=== PATIENT | female | born 1990 | race Caucasian/White ===

== ENCOUNTER 2019-12-23 13:27 | Emergency (ER) | payer OTHER ==
[~2019-12-23 13:27] MED LIST: Iopamidol 370 76% 50 ML VIAL FS ONE; Iopamidol-370 76% 500 ML 1 ML ONE
[2019-12-23 14:04] LABS: Bacteria/HPF 4+ HPF (None Seen); Bilirubin Negative (Negative); Blood, Urine Negative (Negative); Clarity Turbid (Clear); Glucose, Urine (Dipstick) Normal (Negative); Ketone, Urine Negative (Negative); Leukocyte 25 Leu/uL (Negative); Nitrite Negative (Negative); Protein, Urine (Dipstick) 10 mg/dL (Neg-Trace); RBC/HPF 0-3 HPF (0-3); Specific Gravity, Urine 1.023 (1.002-1.036); Urobilinogen Normal mg/dL (Less than 2)
[2019-12-23] MEDS ORDERED: Morphine 4 MG/ML VIAL ONE (14:05)
[2019-12-23] MEDS ORDERED: diphenhydrAMINE 50 MG/ML VIAL ONE (14:05)
[2019-12-23] MEDS ORDERED: Ondansetron PF 4 MG/2 ML Vial ONE (14:05)
[2019-12-23] MEDS ORDERED: methylPREDNISolone Sod Succ/PF 125 MG/2 ML VIAL ONE ×2 (14:05→14:08)
[2019-12-23] MEDS ORDERED: Famotidine/PF 20 mg/2ml Vial ONE (14:05)
[2019-12-23 14:08] LABS: #Lymphocytes 2.3 thou/uL (1.20-3.40); #Monocytes 0.7 thou/uL (0.11-0.59); %Basophils 0.3 % (0.0-1.0); %Eosinophils 0.4 % (0.0-10.0); %Monocytes 8.1 % (0.0-10.0); %Neutrophils 62.2 % (42.0-75.0); Hemoglobin 14.5 g/dL (12.0-16.0); Mean Corpuscular HGB CONC 34.1 g/dL (32.0-36.0); Mean Corpuscular Volume 90.7 fL (78.0-98.0); Platelet Count 294 thou/uL (130-400); RBC Distribution Width 11.7 % (11.5-14.5); Red Blood Cell (RBC) Count 4.68 mill/uL (4.20-5.40)
[2019-12-23 14:20] LABS: Pregnancy Test - Urine (BHCG) Negative (Negative); Pregu Control Bar Appear? YES (CONTROL BAR); Specific Gravity 1.023 (1.002-1.036)
[2019-12-23 14:21] LABS: Pregu Control Background? CLEAR/WHITE (CLR/WHITE)
[2019-12-23 14:32] LABS: ALT (SGPT) 14 U/L (8-55); AST (SGOT) 13 U/L (5-34); Albumin 4.4 g/dL (3.5-5.0); Alkaline Phosphatase 64 U/L (40-110); Anion Gap 15 mmol/L (10-20); BUN (Urea Nitrogen) 11 mg/dL (7.0-18.7); Bilirubin, Total 0.5 mg/dL (0.2-1.2); Calc. Creatinine Clearance 0 mL/min (70-130); Carbon Dioxide 23 mmol/L (22-29); Chloride 104 mmol/L (98-107); Estimated GFR-MDRD 84; Globulin 2.5 g/dL (2.4-3.5); Glucose 82 mg/dL (70-105); Lipase 28 U/L (8-78); Potassium 4.2 mmol/L (3.5-5.1); Protein, Total 6.9 g/dL (6.0-8.3); Sodium 138 mmol/L (136-145)
--- NOTE | 2019-12-23 17:07 | CT ---
CT ABDOMEN AND PELVIS WITH IV CONTRAST: Date: 12-23-2019 PROVIDED CLINICAL HISTORY: Right lower quadrant pain. FINDINGS: The visualized lung bases are free of significant opacity. The liver, spleen, pancreas, and adrenal glands appear unremarkable. There is a 2 mm nonobstructing m idpole left renal calculus. There is a subcentimeter hyperdensity involving the inferior right kidney , too small to definitively characterize, but statistically a cyst. There is no bowel dilatation, inflammatory fat stranding, free fluid, or free air apparent. The gallb ladder is decompressed. The appendix appears normal. There are conspicuous by number but no biologically enlarged lymph nodes present within the central a nd right lower quadrant bowel mesentery. No retroperitoneum lymph node enlargement is evident. The osseous structures demonstrate no concerning lytic or blastic lesions. IMPRESSION: Findings suggesting mesenteric adenitis. POS: [facility]
== END 2019-12-23 17:27 | disposition home or self-care (01) ==
LOC: ERS 13:27
DX: I88.0 Nonspecific mesenteric lymphadenitis (principal); G43.909 Migraine, unspecified, not intractable, without status migrainosus; Z79.899 Other long term (current) drug therapy
CPT/HCPCS: 36415; 74177; 80053; 81003; 81015; 81025; 83690; 85025; 96374; 96375; J1200; J2270; J2405; J2930; Q9967; S0028

== ENCOUNTER 2020-09-06 19:40 | Emergency (ER) | payer OTHER ==
[2020-09-06] MEDS ORDERED: cefTRIAXone\\ROCEPHIN 1 GM VIAL ONE (20:27)
[2020-09-06] MEDS ORDERED: Dexamethasone 10 MG/ML VIAL ONE (20:27)
[2020-09-06] MEDS ORDERED: diphenhydrAMINE 50 MG/ML VIAL ONE (20:27)
== END 2020-09-06 23:08 | disposition home or self-care (01) ==
LOC: ERS 19:40
DX: L03.211 Cellulitis of face (principal); G43.909 Migraine, unspecified, not intractable, without status migrainosus
CPT/HCPCS: 96365; 96366; 96375; J0696; J1100; J1200